=== PATIENT | female | born 1995 | race Caucasian/White ===

== ENCOUNTER 2016-08-20 12:59 | Inpatient (IN) | payer OTHER ==
[~2016-08-20] VITALS: Ht 160 cm; Wt 49.6 kg
[~2016-08-20 12:59] MED LIST: CEPH500C PO; HYDR-4003 PO; MUPI22OI2 TOP; SULF1TAB7 PO
[2016-08-20 13:02] VITALS: BP 144/84; PULSE 117; RESP 18; O2SAT 99
--- NOTE | 2016-08-20 13:18 | ED.REPORT ---
HPI-Rash / Abscess Date of Service Aug 20, 2016 ED Provider: Bernardino Mendez MD The pt is a 21 y/o female w/ a hx of cellulitis presenting to the ED due to severe swelling around the eyes. She reports being "normal" yesterday, but having a pimple above her L eyelid. She was tested negative for Lupus by a bearing grinder and reports antibiotics having decreased her physical symptoms but "still feeling something" around her eyes. The pt rates the pain as an 8/ 10. This has happened to the pt 5 times over the last year and a half, with the most recent episode being a month ago. None of the previous episodes have been this severe. Nursing Notes Stated Complaint: SWOLLEN FACE Chief Complaint: Head, Face, Neck Trauma Nursing Notes Reviewed: Yes (Transparency Software, F[employer] not reconciled) Allergies: Coded Allergies: No Known Allergies (Unverified , 04/18/15) Scheduled Citalopram (Citalopram) 10 Mg Tablet 10 MG PO DAILY General Time Seen by MD: 13:17 Chief Complaint Other (Facial swelling ) Hx Obtained From: Patient Arrived By: Walk-in Onset Occurred: Yesterday Symptom Duration: Since onset Recent Healthcare: No recent hospitalization, Recent doctor visit Similar Sx Previous: Yes Past Medical History Past Medical History h/o MSSA Cellulitis (recurrent, facial x4 over past ~12 months), 1 prior admit OSH Past Surgical History Denies Smoking History Current Every Day Smoker Social History Other Social History: Good social support Ambulatory Status Independent Review of Systems Skin: Reports Swelling (Face) Complete sys rev & neg: except as marked. Physical Exam Initial Vital Signs Vital Signs (First) Date Time Temp Pulse Resp B/P Pulse Ox O2 Delivery O2 Flow Rate FiO2 08/20/16 13:02 117 18 144/84 99 Room Air 08/20/16 13:19 36.8 Initial VS: Reviewed, Vital signs abnormal General/Constitutional: Awake, Alert Behavior: Positive: Anxious, Tearful Skin: No rash, Intact Entire upper face including both eyelids swollen and erythematous Clear drained which may be topical antibiotic on bridge of nose Cheeks are swollen No abscess appreciated for I&D Head / Eyes: Atraumatic, Normocephalic ENT: Atraumatic, Airway patent, Mucous membranes moist Respiratory / Chest: Atraumatic, Breath sounds NL, Breath sounds = bilat, No respiratory distress, No rales, No rhonchi, No wheezing Cardiovascular: Regular rhythm, Heart sounds NL, No murmurs Heart Rate / Rhythm: Positive: Tachycardia Upper Extremity / MS: Atraumatic, Full range of motion Lower Extremity / Pelvis / MS: Atraumatic, Full range of motion Neurologic: Oriented X3, Speech NL Neck: Atraumatic, Supple, Full range of motion Wrist / Hand: Atraumatic, Inspection NL, Full range of motion Interpretation & Diagnostics Lab Results Interpretation Result Diagram: 08/20/16 1330 08/20/16 1330 Test 08/20/16 13:30 08/20/16 13:52 White Blood Count 8.1th/mm3 (3.8-10.1) Red Blood Count 4.85mil/mm3 (3.90-5.20) Hemoglobin 14.6g/dL (12.0-15.6) Hematocrit 44.6% (35.0-46.0) Mean Corpuscular Volume 92.0fL (81-100) Mean Corpuscular Hemoglobin 30.1pg (27.0-35.0) Mean Corpuscular Hemoglobin Concent 32.7% (32.0-37.0) Red Cell Distribution Width 13.2% (12.3-15.4) Platelet Count 275bil/L (150-400) Neutrophils (%) (Auto) 63.1% (40-74) Lymphocytes (%) (Auto) 21.1% (14-46) Monocytes (%) (Auto) 11.4% (4-12) Eosinophils (%) (Auto) 3.8% (0-5) Basophils (%) (Auto) 0.5% (0-3) Sodium Level 138mEq/L (134-144) Potassium Level 4.0mEq/L (3.5-5.2) Chloride Level 98mEq/L (97-108) Carbon Dioxide Level 23mmol/L (18-29) Blood Urea Nitrogen 14mg/dL (6-20) Creatinine 0.71mg/dL (0.57-1.00) Estimat Glomerular Filtration Rate 146mL/min (>59) Glucose Level 80mg/dL (60-99) Calcium Level 9.6mg/dL (8.5-10.1) Total Bilirubin 0.9mg/dL (0.0-1.2) Aspartate Amino Transf (AST/SGOT) 29U/L (0-50) Alanine Aminotransferase (ALT/SGPT) 20U/L (0-32) Alkaline Phosphatase 81U/L (25-150) Total Protein 7.4g/dL (6.4-8.4) Albumin 4.5g/dL (3.4-5.0) Procalcitonin 0.02ng/mL (0.00-0.08) Lactic Acid Level 0.9mmol/L (0.4-2.0) Lab Results Interpretation: CBC normal CMP normal Lactic acid normal CT Head Interpretation Face CT IMPRESSION: 1. Marked right facial soft tissue swelling without underlying abscess amenable to drainage. These findings are most consistent with cellulitis. Dictated by: Lottie Gao M.D. on 08/20/2016 at 15:19 Study: Head CT w contrast (IV) Interpretation / Wet Read by: Interpret - Radiologist Re-Eval/Medical Decision Med Decision/Clinical Course This is a 21-year-old female presents with swelling pain and redness of the face. Patient reports that over the past year she has multiple episodes of cellulitis, and alleges that they have all been negative for MRSA, and but that she has been told it is a "staph infection-presumably an MSSA and is responded to antibiotic. She reports is rather sudden onset, and today's episode is the worst. She felt okay this morning, but developed redness swelling and pain down her eyelids are close to swollen shut, no foreign face are swollen and erythematous. She reports moderate pain, significant anxiety, some weeping clear drainage, and she applies topical silver sulfadiazine. She reports due to the recurrence she seen several providers up in [place], she has seen a bearing grinder and reports a biopsy was done that was negative for lupus. On exam, the patient has marked swelling of the forehead, both eyelids in the periorbital regions to the point that her eyes are almost closed. She denies any ocular complaints. The swelling is very pronounced. There is erythema and warmth. There is some clear drainage along the nose which was sampled and a culture sent. I do not appreciate clinical evidence of a alex full local abscess. The patient reports she did a "ingrown hair" on the right thigh recently, but this is not currently infected and is a healing well with no signs of infection or MRSA. Patient's in tears, the swelling is quite impressive. She has no evidence of airway compromise is on the periorbital regions of the left greater than the right side involvement. An IV is placed, labs and culture were drawn. The patient's been started on vancomycin after discussion with Obi Tovar from infectious disease, immediately given an empiric dose of steroids given the severity of the swelling. A CT of the face with IV contrast is being obtained to evaluate for underlying abscess not clinically apparent. Given the severity of swelling involving the face admission is indicated Source of Hx: Old records Differential Diagnosis: Positive: Cellulitis, Negative: Hand, foot, mouth disease, Henoch-Schonlein purpura, Herpes zoster/ simplex, Kawasaki's disease, Enrique mt spotted fever, Scabies, Scarlet fever, Shingles, herpes zoster Counseled Regarding: Diagnosis, Lab results, Need for admission Discharge & Departure Impression: Primary Impression: Cellulitis Site of cellulitis: face Qualified Code: L03.211 - Cellulitis of face Disposition: ADMITTED TO HOSPITAL Discharge Condition All VS Reviewed: Yes Condition: Stable Referrals: Reginaldo Ni MD (PCP) Golden Reynoso MD (Family) Charlette Attestation Portions of this note were transcribed by Bi Alvarado. I, Dr. Mendez personally performed the history, physical exam and medical decision-making; I reviewed and confirmed the accuracy of the information in the transcribed note. Signed by : Charlette Ac, 08/20/16 and 1340. copies to: Golden Reynoso MD; Reginaldo Ni MD, Matthew F MD Aug 20, 2016 13:18 Bi Alvarado Aug 20, 2016 13:44 JARRELL REYES Aug 20, 2016 16:31
[2016-08-20] MEDS ORDERED: Ondansetron 2 mg/mL 2 mL Inj IVPUSH ONE (13:35)
[2016-08-20] MEDS ORDERED: Dexamethasone Inj 10 MG in 0.9% Sodium Chloride-Pha MIX 50 ML IV ONE (13:40)
[2016-08-20] MEDS ORDERED: Vancomycin Dose per Pharmacist XX ONE (13:40)
[2016-08-20 13:43] LABS: BASOPHILS % (AUTO) 0.5 % (0-3); EOSINOPHILS % (AUTO) 3.8 % (0-5); MONOCYTES % (AUTO) 11.4 % (4-12); Mean Corpuscular Hemoglobin 30.1 pg (27.0-35.0); NEUTROPHILS % (AUTO) 63.1 % (40-74); Platelet Count 275 bil/L (150-400)
[2016-08-20] MEDS ORDERED: Vancomycin Inj 1,000 MG in IV Premix 1 EACH IV ONE (13:50)
[2016-08-20] MEDS: HYDROmorphone 0.5 mg/0.5 mL iSecure Syringe IVPUSH PRN ×2 (13:54→15:36)
[2016-08-20] MEDS ORDERED: CITA10TA9 PO (14:08)
--- NOTE | 2016-08-20 15:29 | DRSVH ---
PROCEDURE: CT FACE WITH CONTRAST ([id number]) INDICATIONS: severe facial cellulits r/o abscess TECHNIQUE: After the administration of intravenous contrast, 3.0 mm axial sections acquired from the mid-neck to the frontal sinuses, with coronal reformatting. For radiation dose reduction, the following was use d: automated exposure control. COMPARISON: None. FINDINGS: Image quality: Excellent. Soft tissues: There is marked swelling overlying the right preorbital, zygomatic and maxillary soft t issues. There is no discrete fluid collection to suggest abscess. No other suspicious soft tissue les ions. There are multiple subcentimeter shotty lymph nodes. Vascular: Visualized vascular structures appear patent throughout. Bony vascular foramina and canal s appear normal. Bones: Facial bones appear intact, without fractures, erosions, or destruction. Visualized portions of the skull base and auditory canals also appear normal. Sinuses: Paranasal sinuses are aerated without fluid levels, mucosal thickening, or mucoceles. Mast oid air cells are aerated. IMPRESSION: 1. Marked right facial soft tissue swelling without underlying abscess amenable to drainage. These fi ndings are most consistent with cellulitis. Dictated by: Lottie Gao M.D. on 08/20/2016 at 15:19 Approved by: Lottie Gao M.D. on 08/20/2016 at 15:27
[2016-08-20 15:48] VITALS: BP 118/80; PULSE 83; RESP 16; O2SAT 96
[2016-08-20] MEDS ORDERED: Alum-Mag Hydrox-Simeth 30 mL Suspension PO PRN ×2 (16:35→17:25)
[2016-08-20] MEDS ORDERED: Ondansetron 2 mg/mL 2 mL Inj IVPUSH PRN ×2 (16:35→17:25)
[2016-08-20 16:50] VITALS: BP 121/78; PULSE 78; RESP 16; O2SAT 99
--- NOTE | 2016-08-20 17:07 | NUR ---
Admission Patient admitted from the ED at 1636. Admit questions and med list accomplished by admit nurse. Patient states a pressure pain in the face of 8/10. MD notified and will order pain meds. Also gave ice packs to help relieve pain. vitals - t-36.7, bp-121/78, p-78, rr-16, o2-99 on RA. Oriented patient to the room, placed bed in lowest position and call light within reach.
[2016-08-20] MEDS ORDERED: Polyethylene Glycol (PEG) 17 Gm Powder PO PRN (17:25)
[2016-08-20] MEDS: Dexamethasone 4 mg/mL Inj IVPUSH SCH (17:38)
--- NOTE | 2016-08-20 17:45 | PCM.HPMED ---
Subjective Date of Service Aug 20, 2016 Primary Provider: Admitting Physician: Eric Peace MD Primary Care Physician: Cristian Attending Physician: Eric Peace MD Admit Status: From the Emergency Department, Admit to [place] Team Chief Complaint: Left Eye Swelling History of Present Illness: 21 yo F with h/o anxiety/depression, recurrent facial cellulitis of left eye presenting for severe swelling of left eye and overlying rash. Started yesterday. She says that she woke up this AM and here eye was swollen almost closed. She has had issues like this in the past and has been seen by [facility]. She has been tested for Lupus and that test was negative. Has responsed to antibiotics in the past. Pt denies fever,chills. Was painful but that has improved with the pain meds. Does not some clear discharge when wiping her eye but no purulent discharge. She says she has been tested for MRSA in the past and that has been negative. Has had 5 episodes over last year but this is most severe. Denies any sick contacts. No bug bites. No outdoor activity. No new products applied to face. Review of Systems: 12 point ROS negative except that in HPI Allergies Coded Allergies: No Known Allergies (Unverified , 04/18/15) Home Medications Citalopram (Citalopram) 10 Mg Tablet 10 MG PO DAILY PMH Depression Anxiety Recurrent episodes of Facial Cellulitis- MSSA, Surgical History No surgeries. Family History non-contrib Social History Hx Alcohol Use: No Hx Substance Use: No Hx Tobacco Use: Yes Smoking Status: Current Every Day Smoker Living Arrangement: with Family Exam Vital Signs Vital Sign - Last Date Time Temp Pulse Resp B/P Pulse Ox O2 Delivery O2 Flow Rate FiO2 08/20/16 16:50 36.7 78 16 121/78 99 Room Air Exam Gen- AOX3, Anxious HEENT- NC/AT PERRLA Left Eye- +area medial to Eye- +erythema, non-purulent. 4inche x 1 inch. Chest- CTAB CVS- S1,S2 RRR, No M/R/G Abd- soft, +BS, NT/ND. No HSM. Ext- No Edema, +PP Lab and Diagnostics Labs CBC CMP l Result Diagram: 08/20/16 1330 08/20/16 1330 Microbiology Laboratory Tests Test 08/20/16 13:30 08/20/16 13:52 White Blood Count 8.1th/mm3 (3.8-10.1) Red Blood Count 4.85mil/mm3 (3.90-5.20) Hemoglobin 14.6g/dL (12.0-15.6) Hematocrit 44.6% (35.0-46.0) Mean Corpuscular Volume 92.0fL (81-100) Mean Corpuscular Hemoglobin 30.1pg (27.0-35.0) Mean Corpuscular Hemoglobin Concent 32.7% (32.0-37.0) Red Cell Distribution Width 13.2% (12.3-15.4) Platelet Count 275bil/L (150-400) Neutrophils (%) (Auto) 63.1% (40-74) Lymphocytes (%) (Auto) 21.1% (14-46) Monocytes (%) (Auto) 11.4% (4-12) Eosinophils (%) (Auto) 3.8% (0-5) Basophils (%) (Auto) 0.5% (0-3) Sodium Level 138mEq/L (134-144) Potassium Level 4.0mEq/L (3.5-5.2) Chloride Level 98mEq/L (97-108) Carbon Dioxide Level 23mmol/L (18-29) Blood Urea Nitrogen 14mg/dL (6-20) Creatinine 0.71mg/dL (0.57-1.00) Estimat Glomerular Filtration Rate 146mL/min (>59) Glucose Level 80mg/dL (60-99) Calcium Level 9.6mg/dL (8.5-10.1) Total Bilirubin 0.9mg/dL (0.0-1.2) Aspartate Amino Transf (AST/SGOT) 29U/L (0-50) Alanine Aminotransferase (ALT/SGPT) 20U/L (0-32) Alkaline Phosphatase 81U/L (25-150) Total Protein 7.4g/dL (6.4-8.4) Albumin 4.5g/dL (3.4-5.0) Procalcitonin 0.02ng/mL (0.00-0.08) Lactic Acid Level 0.9mmol/L (0.4-2.0) Microbiology 08/20/16 Blood Culture, Received Pending 08/20/16 Gram Stain - Final, Resulted 08/20/16 Culture & Sensitivity, Resulted Pending X-Rays, CTs and MRIs PROCEDURE: CT FACE WITH CONTRAST ([id number]) INDICATIONS: severe facial cellulits r/o abscess TECHNIQUE: After the administration of intravenous contrast, 3.0 mm axial sections acquired from the mid-neck to the frontal sinuses, with coronal reformatting. For radiation dose reduction, the following was used: automated exposure control. COMPARISON: None. FINDINGS: Image quality: Excellent. Soft tissues: There is marked swelling overlying the right preorbital, zygomatic and maxillary soft tissues. There is no discrete fluid collection to suggest abscess. No other suspicious soft tissue lesions. There are multiple subcentimeter shotty lymph nodes. Vascular: Visualized vascular structures appear patent throughout. Bony vascular foramina and canals appear normal. Bones: Facial bones appear intact, without fractures, erosions, or destruction. Visualized portions of the skull base and auditory canals also appear normal. Sinuses: Paranasal sinuses are aerated without fluid levels, mucosal thickening , or mucoceles. Mastoid air cells are aerated. IMPRESSION: 1. Marked right facial soft tissue swelling without underlying abscess amenable to drainage. These findings are most consistent with cellulitis. Dictated by: Lottie Gao M.D. on 08/20/2016 at 15:19 Approved by: Lottie Gao M.D. on 08/20/2016 at 15:27 Assessment & Plan 21 yo F with h/o anxiety/depression, recurrent facial cellulitis of left eye presenting for severe swelling of left eye and erythema likely 2/2 to cellulitis. #Facial Cellulitis- w/ severe Orbital Swelling- previous episodes of MSSA, some clear drainage appears non-purulent. -Pt has been started on Vancomycin and Decadron for swelling given location. -F/u Blood Cultures. CT Face- c/w cellulitis w/ no abscess. -ID Consulted. #Depression- continue home med. #Tobacco Use- Nicotine patches. #Pain- Morphine 1mg IV q3h prn. FEN- Diet- regular GI ppx- none required. VTE Prophylaxis- Ambulatory, SCD. Code- Full Pain Evaluation: Adequate Pain Control GI Prophylaxis: Not indicated VTE Prophylaxis: SCDs VTE Mechanical Devices: Intermittant Pneumatic CD Resuscitation Status: CPR: Attempt Resuscitation Time spent 60 minutes Exam Vital Signs Vital Sign - Last Date Time Temp Pulse Resp B/P Pulse Ox O2 Delivery O2 Flow Rate FiO2 08/20/16 16:50 36.7 78 16 121/78 99 Room Air General: Alert, Oriented X3 Head: Normal Eyes: Other (L) Lab and Diagnostics Result Diagram: 08/20/16 1330 08/20/16 1330 Eric Peace MD Aug 20, 2016 17:32 Pain Evaluation: Adequate Pain Control GI Prophylaxis: Not indicated VTE Prophylaxis: SCDs VTE Mechanical Devices: Intermittant Pneumatic CD Resuscitation Status: CPR: Attempt Resuscitation Time spent 60 minutes Exam Vital Signs Vital Sign - Last Date Time Temp Pulse Resp B/P Pulse Ox O2 Delivery O2 Flow Rate FiO2 08/20/16 16:50 36.7 78 16 121/78 99 Room Air General: Alert, Oriented X3 Head: Normal Eyes: Other (L) Lab and Diagnostics Result Diagram: 08/20/16132908/20/161329 Eric Peace MD Aug 20, 2016 17:32
--- NOTE | 2016-08-20 20:45 | CONS ---
[address] [address] CONSULTATION REPORT PATIENT: MARIE WALTON : 1995 MR#: [id number] ADMIT: 08/20/2016 JOB ID: [id number] DATE OF SERVICE: 08/20/2016 INFECTIOUS DISEASE CONSULTATION: I thank Dr. Bernardino Mendez from the emergency department for this timely consult. REASON FOR CONSULT: Recurrent mid facial cellulitis in a young woman. HISTORY OF THE PRESENT ILLNESS: The patient is a 21-year-old woman who has no significant known medical problems. She states that over the past year and a half or so she has had at least four very severe episodes of mid facial cellulitis. These typically begin along the left side, the left medial end of her eyebrow, where she will develop a small erythematous lesion which rapidly evolves into a tender weeping erythematous mass which extends basically from the middle of the forehead, down along the bridge of the nose, and sometimes involves the periorbital area. She states that she has been evaluated at [facility] in [place], as well as a private practice in [place], and an outpatient dermatology practice, and at all these location she was told this represented some form of Staph infection, though what form was not completely clear. She states she has been evaluated for lupus and has received very long courses of antibiotics only to have this very disfiguring type of cellulitis recur. She states she has no other known medical problems, though she is a cigarette smoker and does have some history of anxiety, but otherwise is pretty healthy and employed at two different jobs at this point. These recurrent episodes, including the one that began yesterday which is now in the left middle portion of her upper face, are not accompanied by demonstrable fevers, chills, or sweats, though she sometimes feels quite warm. They are, not surprisingly, associated with headache and sometimes with some swelling of one eye. There is no association with sore throat or significant pulmonary or GI symptoms. PAST MEDICAL HISTORY: Anxiety. No other problems aside from apparent recurrent soft-tissue infections involving only the face. 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 She does smoke cigarettes; a pack takes her few days to smoke. She drinks wine socially. FAMILY HISTORY: Negative for tuberculosis in first- and second-degree relatives, but also negative for connective tissue diseases. REVIEW OF SYSTEMS: Was done. Aside from the headache, which is occurring now due to the facial lesion, and some diminution of vision on the left because of swelling around the orbit, the patient has very few symptoms. She has pain along the erythematous area in the middle of the face, but otherwise no oral lesions, no trouble swallowing. No sore throat, stiff neck, cough, shortness of breath, chest pain, nausea, vomiting, diarrhea, or dysuria. She has noticed a little pain and swelling which seems to have occurred spontaneously around her left ankle over just the last day or two. She has also developed a scab over her right knee and does not remember any recent trauma. The remainder of the review of systems is negative. PHYSICAL EXAMINATION: Reveals a young woman in no acute distress. Her temperature is 36.7, pulse 78, respiratory rate 16, blood pressure 121/78. She is saturating 99% on room air. She is upset and in some distress secondary to the cellulitis. This is an area approximately 5 x 2 cm wide which starts in the left mid portion of the forehead, extends down to involve the medial portion of the eyebrow on the left, and down into the medial aspect of the orbit. This areas is slightly tender to the touch and is inflamed, with rather rigid borders. I attempted to express some purulent material from this, as she said that was relatively easy to do, but I was not able to produce any fluid from the area where she stated there is usually during drainage, right around the end of the eyebrow on the left. The remainder of the face is free of any cellulitis or abnormality. The patient's extraocular movements are intact, though it is difficult to see her left eye very clearly because of the swelling around the orbit. The nose appears quite normal. The oral cavity without thrush, hairy leukoplakia, or pharyngitis. The neck is supple, without adenopathy. The lungs are clear. Cardiac tones regular rate and rhythm, without murmur. Abdomen without hepatosplenomegaly. There is no suprapubic fullness. No obvious cervical or inguinal adenopathy. Extremities are unremarkable, though when the patient's left ankle is palpated there is significant pain, especially along the medial aspect, but I do not see any inflammation, nor is there any significant effusion, cellulitis, or swelling. The right lower extremity is completely normal, except for a shallow healing scab just proximal to the right knee. It does not appear in any way infected. There is no evidence for synovitis, except that slightly tender left ankle, which is not swollen or tender. No other joints are involved. Neurologically, the patient is intact. Her mental status is normal. She appears anxious. LABORATORIES: Include white count 8100, with totally normal diff. Creatinine 0.71. Lactic acid 0.9. LFTs normal. Procalcitonin 0.02. A Gram stain done by the ED doctor from some draining material he was able to express from the face has no polys and no organisms. Blood cultures x2 were done. IMAGING: A CT scan of the face was done which shows right facial soft tissue swelling without underlying abscess, consistent with cellulitis. Interestingly most of the abnormal exam is on the opposite side. IMPRESSION: This is a patient on whom we have essentially no records who presents with one in a series of ongoing episodes of recurrent facial inflammation and presumably staphylococcal infection. She has been told by other providers that staph has been cultured but we have really no records to prove that in our system. The patient has really nothing in the way of unusual exposures or travel and there is nothing to suggest ongoing immunosuppression. Why this particular area of the body would be so impacted by recurrent MSSA infections is unclear at this point, as I see no evidence for ongoing systemic disease or immunosuppression. RECOMMENDATIONS: 1. Will start treatment with vancomycin as I discussed with Dr. Mendez in the ED. 2. Nasal MRSA swab will be ordered. 3. Will add OLEG, quantitative immunoglobulins, and HIV to the morning labs. 4. We await the culture results from the ED. 5. I have asked the speaking unit assembler to obtain the records from [facility], as well as [facility], in hopes of seeing what cultures and other studies they did. 6. Will continue to watch this patient very closely. 7. It may be that an attempt at Staph aureus eradication with nasal Bactroban, Hibiclens washes, and a prolonged course of dual antibiotic therapy may be indicated as we get more data about this patient. Thank you very much.
[2016-08-20 21:04] VITALS: BP 142/93; PULSE 89; RESP 16; O2SAT 99
--- NOTE | 2016-08-20 21:19 | PCM.CONPHA ---
Assessment/Plan Assessment/Plan Pharmacy Kinetic Dosing Vancomycin Indication: FACIAL CELLULITIS Vanc goal trough: 10-15 mcg/mL Pt wt: 49.6 kg Other ABX: NONE Cultures: Blood/MRSA PENDING SCr: 0.71 mg/dL Assessment/Plan: - Loading dose of Vancomycin 1000 mg given in ED for (20mg/kg dosing) -Subsequent doses of 750 mg Q12H will be given with a trough scheduled on @0200 Pharmacy appreciates consult and will continue to monitor. Donya Cabezas PharmD Aug 20, 2016 21:19
[2016-08-20] MEDS ORDERED: ALPRAZolam 0.25 mg Tablet PO ONE (22:00)
[2016-08-21] MEDS: Heparin 5,000 Unit/mL Inj SUBQ SCH ×3 (00:28→17:13)
--- NOTE | 2016-08-21 00:38 | NUR ---
Mentation Pt in room crying, complained of pain "7" out of 10. Pt reports "nothing is helping my pain and I haven't slept for 2 days." Mom at bedside also reports pt "has not slept in 2 days, Melatonin won't work. I want the doctor to order something to knock her out." Pt reports feeling anxiety. Nicoderm patch came off in [facility], requested a new patch. notified. New order: One time dose Xanax PO and Morphine IV push. A new Yuriy patch ordered. Pt and mom shared concerns about pt being discharged before they "get some answers." Pt also requesting a prescription for her home antidepressant when she discharged. Will be passed on the day shift RN. Call light within reach, using appropriately. Frequent rounding in place. Pleasant and cooperative with care. Will continue to monitor care.
[2016-08-21] MEDS: Dexamethasone 4 mg/mL Inj IVPUSH SCH ×3 (02:00→17:13)
[2016-08-21] MEDS: Vancomycin Inj 750 MG in 0.9% Sodium Chloride 250 ML IV SCH ×2 (02:00→15:07)
[2016-08-21 06:26] LABS: BASOPHILS % (AUTO) 0.2 % (0-3); EOSINOPHILS % (AUTO) 0 % (0-5); MONOCYTES % (AUTO) 5.8 % (4-12); Mean Corpuscular Hemoglobin 30.6 pg (27.0-35.0); Mean Corpuscular Volume 91.8 fL (81-100); NEUTROPHILS % (AUTO) 85.8 % (40-74); Platelet Count 257 bil/L (150-400)
[2016-08-21 06:49] VITALS: BP 110/68; PULSE 55; RESP 16; O2SAT 99
[2016-08-21] MEDS: Vancomycin Dose per Pharmacist XX SCH ×2 (07:42→09:06)
--- NOTE | 2016-08-21 10:21 | PROG NOTE ---
[address] [address] PROGRESS NOTE PATIENT: MARIE WALTON : 1995 MR#: [id number] ADMIT: 08/20/2016 JOB ID: [id number] DATE: 08/21/2016 INFECTIOUS DISEASE FOLLOW UP NOTE: REASON FOR FOLLOWUP: Severe left upper facial cellulitis with left periorbital cellulitis. INTERVAL HISTORY: Overnight, the patient reports, if anything, her facial cellulitis has worsened. Recall that she came in with a rapidly progressive left central facial cellulitis which involved the left orbit as well. This is one in a series of numerous recurrences over the last 18 months for this young woman. She reports that some of these have been due to Staph and I asked for records to be faxed from the [facility] where supposedly the positive cultures have been done. Unfortunately what was faxed appears to been records on another patient so it was not helpful so far and we have no confirmation that the prior episodes were Staph other than the patient and her mother recalling this. The patient has not had fevers or chills overnight. She continues to have a headache and especially pain around the left eye, of course, from this process. No sore throat or cough. PHYSICAL EXAMINATION: Reveals a very uncomfortable, tearful young woman. Temperature 36.7, pulse 55, respiratory rate 16, blood pressure 110/68. She is saturating well on room air. The 5 x 2 basically rectangular stripe of cellulitis which extends from the middle forehead down through the left medial eyebrow through the left medial canthus and down to about the mid portion of the nose continues with little change. I see no pustules or vesicles that would definitively indicate pyogenic or viral etiology. The area is very tender, slightly warm and I cannot produce any exudate to culture though the patient tells me there has been some yellowish exudate. She does have extraocular movements but she has a great deal of difficulty even opening the left eye today. Oral cavity without thrush or pharyngitis. There is no herpetic lesions on the lips. The neck is supple. The lungs are clear. Cardiac tones without murmur. Abdomen negative. LABORATORIES: Include a white count which has actually gone up overnight. It is now 11,500 with 86% segs. Creatinine 0.48. CRP is 0.3. Procalcitonin basically 0. Quantitative immunoglobulins and HIV that I had ordered are all pending but not yet done. Blood cultures are negative. The Gram stain and culture of this material is negative. The PCR for MRSA from the nares is pending. Should be done within an hour. The CT scan of the face did not show anything of great interest and that was discussed yesterday. IMPRESSION: This is a strange case of a young, apparently totally healthy woman with several episodes of worsening and severe left upper facial cellulitis. These attacks tend to be mimetic and are becoming increasingly severe. It has been reported that Staph has been culture but I am not sure if this is Staph epi, Staph aureus or MRSA and we await additional data. There is still no great material for us to culture unfortunately making diagnostics even more difficult. RECOMMENDATIONS: The patient is now receiving vanco and I am a little concerned that we do not have any microbiologic definition here. Most likely, this represents Staph but this is by no means certain as we do not have any cultures so I think it is reasonable at least in the near term as she is getting worse to broaden out a bit. RECOMMENDATIONS: 1. Will continue with vancomycin with close monitoring of levels. If we cannot get good serum levels easily, will switch to dapto. 2. Will add ertapenem in a dose of 1 g once a day to start immediately. 3. We await the pending culture studies and labs from [place]. 4. I have discussed the necessity of getting the lab work as soon as possible with the community engagement representative.
--- NOTE | 2016-08-21 10:40 | PCM.PNMED ---
Subjective Date of Service Aug 21, 2016 Subjective 21 yo F with h/o anxiety/depression, recurrent facial cellulitis of left eye presenting for severe swelling of left eye and overlying rash. Started yesterday. She says that she woke up this AM and here eye was swollen almost closed. She has had issues like this in the past and has been seen by Water Hydrant Installer. She has been tested for Lupus and that test was negative. Has responsed to antibiotics in the past. Pt denies fever,chills. Swelling on right side improved today. [place] has felt anxious. No other vison disturbances. ON broad spectrum coverage. ID on board. No diarrhea Exam Vital Signs Vital Sign - Last Date Time Temp Pulse Resp B/P Pulse Ox O2 Delivery O2 Flow Rate FiO2 08/21/16 06:49 36.7 55 16 110/68 99 Room Air Exam Gen- AOX3, Anxious HEENT- NC/AT PERRLA Left Eye- +area medial to Eye- +erythema, non-purulent. Chest- CTAB, no wheeze or crackles CVS- S1,S2 RRR, No M/R/G Abd- NT/ND Ext- No Edema, +PP Muscoloskeletal - mild left ankle edema, no tenderness, difficulty with flexion and extension IVs and Medications Medications Reviewed: Medications were reviewed in detail Lab and Diagnostics Result Diagram: 08/21/16 0555 08/21/16 0555 Microbiology Laboratory Tests Test 08/20/16 13:30 08/20/16 13:52 White Blood Count 8.1th/mm3 (3.8-10.1) Red Blood Count 4.85mil/mm3 (3.90-5.20) Hemoglobin 14.6g/dL (12.0-15.6) Hematocrit 44.6% (35.0-46.0) Mean Corpuscular Volume 92.0fL (81-100) Mean Corpuscular Hemoglobin 30.1pg (27.0-35.0) Mean Corpuscular Hemoglobin Concent 32.7% (32.0-37.0) Red Cell Distribution Width 13.2% (12.3-15.4) Platelet Count 275bil/L (150-400) Neutrophils (%) (Auto) 63.1% (40-74) Lymphocytes (%) (Auto) 21.1% (14-46) Monocytes (%) (Auto) 11.4% (4-12) Eosinophils (%) (Auto) 3.8% (0-5) Basophils (%) (Auto) 0.5% (0-3) Sodium Level 138mEq/L (134-144) Potassium Level 4.0mEq/L (3.5-5.2) Chloride Level 98mEq/L (97-108) Carbon Dioxide Level 23mmol/L (18-29) Blood Urea Nitrogen 14mg/dL (6-20) Creatinine 0.71mg/dL (0.57-1.00) Estimat Glomerular Filtration Rate 146mL/min (>59) Glucose Level 80mg/dL (60-99) Calcium Level 9.6mg/dL (8.5-10.1) Total Bilirubin 0.9mg/dL (0.0-1.2) Aspartate Amino Transf (AST/SGOT) 29U/L (0-50) Alanine Aminotransferase (ALT/SGPT) 20U/L (0-32) Alkaline Phosphatase 81U/L (25-150) Total Protein 7.4g/dL (6.4-8.4) Albumin 4.5g/dL (3.4-5.0) Procalcitonin 0.02ng/mL (0.00-0.08) Lactic Acid Level 0.9mmol/L (0.4-2.0) Microbiology 08/20/16 Blood Culture, Received Pending 08/20/16 Gram Stain - Final, Resulted 08/20/16 Culture & Sensitivity, Resulted Pending X-Rays, CTs and MRIs PROCEDURE: CT FACE WITH CONTRAST ([id number]) INDICATIONS: severe facial cellulits r/o abscess TECHNIQUE: After the administration of intravenous contrast, 3.0 mm axial sections acquired from the mid-neck to the frontal sinuses, with coronal reformatting. For radiation dose reduction, the following was used: automated exposure control. COMPARISON: None. FINDINGS: Image quality: Excellent. Soft tissues: There is marked swelling overlying the right preorbital, zygomatic and maxillary soft tissues. There is no discrete fluid collection to suggest abscess. No other suspicious soft tissue lesions. There are multiple subcentimeter shotty lymph nodes. Vascular: Visualized vascular structures appear patent throughout. Bony vascular foramina and canals appear normal. Bones: Facial bones appear intact, without fractures, erosions, or destruction. Visualized portions of the skull base and auditory canals also appear normal. Sinuses: Paranasal sinuses are aerated without fluid levels, mucosal thickening , or mucoceles. Mastoid air cells are aerated. IMPRESSION: 1. Marked right facial soft tissue swelling without underlying abscess amenable to drainage. These findings are most consistent with cellulitis. Dictated by: Lottie Gao M.D. on 08/20/2016 at 15:19 Approved by: Lottie Gao M.D. on 08/20/2016 at 15:27 Assessment & Plan 21 yo F with h/o anxiety/depression, recurrent facial cellulitis of left eye presenting for severe swelling of left eye and erythema likely 2/2 to cellulitis. #Facial Cellulitis- w/ severe Orbital Swelling- previous episodes of MSSA, some clear drainage appears non-purulent. -Pt has been started on Vancomycin and Decadron for swelling given location. Will taper down decadron. Id has started patient on ertapenam -F/u Blood Cultures. CT Face- c/w cellulitis w/ no abscess. -ID Consulted. #Depression and Anxiety- will restart SSRI and PRN ativan #Tobacco Use- Nicotine patches. #Pain- Morphine 1mg IV q3h prn. #Left ankle swelling - has improved will get xray FEN- Diet- regular GI ppx- none required. VTE Prophylaxis- Ambulatory, SCD. Code- Full Pain Evaluation: Adequate Pain Control GI Prophylaxis: Not indicated VTE Prophylaxis: SCDs VTE Mechanical Devices: Intermittant Pneumatic CD Resuscitation Status: CPR: Attempt Resuscitation Adam Fuentes MD Aug 21, 2016 10:40
[2016-08-21] MEDS: LORazepam 0.5 mg Tablet PO PRN ×2 (10:42→20:51)
[2016-08-21] MEDS: Ertapenem Inj 1,000 MG in 0.9% Sodium Chloride 50 ML IV SCH (12:20)
[2016-08-21 13:05] VITALS: BP 102/61; PULSE 60; RESP 16; O2SAT 99
--- NOTE | 2016-08-21 16:00 | NUR ---
Meds Pts anxiety meds restarted and PRN ativan available as well. Pt states to have had Citalopram last on 08/16, ran out of Rx at home. Pt tolerated IV abx (Ertapenem and Vanco) well. Slept most of the shift.
--- NOTE | 2016-08-21 16:37 | NUR ---
Social Work: Screening/AM Multi-Disciplinary Rounds D: EMR reviewed. Pt is a 21 y/o female admitted for facial cellulitis per H&P. Pt's insurance is [employer]. Pt does not have a PCP listed. SW to follow-up with pt regarding PCP and with MD order, schedule PCP appointment if pt agreeable. Pt lives at home with family in [place]. Per EMR, pt provided DPOA/advanced directive ppw. Per MD in AM rounds, pt does not have any SW discharge needs at this time. Pt likely to discharge home via POV when medically stable. SW will continue to follow EMR, MD, and AM rounds to determine changes in discharge needs. SW to R/O potential IVABX at discharge A: Pt who is independent at baseline. P: Pt likely to discharge home via POV when medically stable. SW will continue to follow EMR, MD, and AM rounds to determine changes in discharge needs. SW to R/O potential IVABX at discharge. DIEGO Dee
[2016-08-21 20:44] VITALS: BP 105/59; PULSE 54; RESP 16; O2SAT 99
[2016-08-22] MEDS: Heparin 5,000 Unit/mL Inj SUBQ SCH ×3 (00:30→17:00)
[2016-08-22] MEDS: Dexamethasone 4 mg/mL Inj IVPUSH SCH (01:25)
[2016-08-22] MEDS ORDERED: Vancomycin Serum Trough XX ONE (02:00)
[2016-08-22] MEDS ORDERED: Vancomycin Inj 1,000 MG in IV Premix 1 EACH IV ONE (03:43)
--- NOTE | 2016-08-22 05:00 | NUR ---
Uneventful Night: Pt rested through the night. Denies cardiac distress, SOB or n/v. Complained of facial pain 08/25. Administered Morphine IV push, effective. Pt reports "feeling better." Call light within reach, using appropriately. Independent in room. Bed locked, low position. Nonslip socks for safety. Frequent rounding. Pleasant and cooperative with care.
--- NOTE | 2016-08-22 05:31 | PCM.PHAPRO ---
Progress Date of Service: Aug 22, 2016 Requesting Provider: Eric Peace MD Left Eye Swelling Facial cellulitis??? A/ - 21 y/o female patient receiving Vancomycin (1G loading dose, 750mg iv q12h ) for facial infection - WBC jumped 11.5 from 8.1 at admission. Cultures showed no growth >24hrs, negative MRSA screen - Ertapenem added on 08/21 - Vancomycin trough level came in low @4.3 P/ - Re-load Vancomycin 1G, then re-evaluate in am during round, likely to be replaced with Daptomycin as Dr. Tovar's recommendation (see his note) Pharmacy will continue to follow Thank you Keri Jackson Aug 22, 2016 05:31
[2016-08-22 06:04] VITALS: BP 115/75; PULSE 53; RESP 16; O2SAT 99
[2016-08-22 06:59] LABS: BASOPHILS % (AUTO) 0.1 % (0-3); EOSINOPHILS % (AUTO) 0.1 % (0-5); MONOCYTES % (AUTO) 4.5 % (4-12); Mean Corpuscular Hemoglobin 30.3 pg (27.0-35.0); Mean Corpuscular Volume 93.8 fL (81-100); Platelet Count 238 bil/L (150-400)
[2016-08-22] MEDS: LORazepam 0.5 mg Tablet PO PRN ×2 (07:43→14:45)
[2016-08-22] MEDS: Ertapenem Inj 1,000 MG in 0.9% Sodium Chloride 50 ML IV SCH (07:43)
[2016-08-22] MEDS: Vancomycin Dose per Pharmacist XX SCH (08:32)
--- NOTE | 2016-08-22 10:13 | PCM.PNMED ---
Subjective Date of Service Aug 22, 2016 Subjective 21 yo F with h/o anxiety/depression, recurrent facial cellulitis of left eye presenting for severe swelling of left eye and overlying rash. She has had issues like this in the past and has been seen by Police Clerk. She has been tested for Lupus and that test was negative. Has responsed to antibiotics in the past. Pt denies fever,chills. Swelling has again improved. [place] has felt anxious. No other vision disturbances. ON broad spectrum coverage. ID on board. No diarrhea Exam Vital Signs Vital Sign - Last Date Time Temp Pulse Resp B/P Pulse Ox O2 Delivery O2 Flow Rate FiO2 08/22/16 06:04 36.4 53 16 115/75 99 Room Air Intake and Output 08/21/16 08/21/16 08/22/16 Cumulative From/Thru 15:00 23:00 07:00 08/20/16 13:02 - 08/22/16 06:53 Intake Total 300 ml 1200 ml 700 ml 2200 ml Output Total 1 ml 1 ml Balance 299 ml 1200 ml 700 ml 2199 ml Intake Oral 300 ml 1200 ml 700 ml 2200 ml Output Urine Total 1 ml 1 ml # Voids 4 3 7 Exam Gen- AOX3, Anxious HEENT- NC/AT PERRLA swelling much improved on the right side. On the left side periorbital nursing swelling again has improved there is no purulent discharge no fluctuation noted , mild tenderness to palpation Chest- CTAB, no wheeze or crackles CVS- S1,S2 RRR, No M/R/G Abd- NT/ND Ext- No Edema, +PP Muscoloskeletal - mild left ankle edema, no tenderness, difficulty with flexion and extension Lab and Diagnostics Result Diagram: 08/22/16 0538 08/22/16 0538 Microbiology Laboratory Tests Test 08/20/16 13:30 08/20/16 13:52 White Blood Count 8.1th/mm3 (3.8-10.1) Red Blood Count 4.85mil/mm3 (3.90-5.20) Hemoglobin 14.6g/dL (12.0-15.6) Hematocrit 44.6% (35.0-46.0) Mean Corpuscular Volume 92.0fL (81-100) Mean Corpuscular Hemoglobin 30.1pg (27.0-35.0) Mean Corpuscular Hemoglobin Concent 32.7% (32.0-37.0) Red Cell Distribution Width 13.2% (12.3-15.4) Platelet Count 275bil/L (150-400) Neutrophils (%) (Auto) 63.1% (40-74) Lymphocytes (%) (Auto) 21.1% (14-46) Monocytes (%) (Auto) 11.4% (4-12) Eosinophils (%) (Auto) 3.8% (0-5) Basophils (%) (Auto) 0.5% (0-3) Sodium Level 138mEq/L (134-144) Potassium Level 4.0mEq/L (3.5-5.2) Chloride Level 98mEq/L (97-108) Carbon Dioxide Level 23mmol/L (18-29) Blood Urea Nitrogen 14mg/dL (6-20) Creatinine 0.71mg/dL (0.57-1.00) Estimat Glomerular Filtration Rate 146mL/min (>59) Glucose Level 80mg/dL (60-99) Calcium Level 9.6mg/dL (8.5-10.1) Total Bilirubin 0.9mg/dL (0.0-1.2) Aspartate Amino Transf (AST/SGOT) 29U/L (0-50) Alanine Aminotransferase (ALT/SGPT) 20U/L (0-32) Alkaline Phosphatase 81U/L (25-150) Total Protein 7.4g/dL (6.4-8.4) Albumin 4.5g/dL (3.4-5.0) Procalcitonin 0.02ng/mL (0.00-0.08) Lactic Acid Level 0.9mmol/L (0.4-2.0) Microbiology 08/20/16 Blood Culture, Received Pending 08/20/16 Gram Stain - Final, Resulted 08/20/16 Culture & Sensitivity, Resulted Pending X-Rays, CTs and MRIs PROCEDURE: CT FACE WITH CONTRAST ([id number]) INDICATIONS: severe facial cellulits r/o abscess TECHNIQUE: After the administration of intravenous contrast, 3.0 mm axial sections acquired from the mid-neck to the frontal sinuses, with coronal reformatting. For radiation dose reduction, the following was used: automated exposure control. COMPARISON: None. FINDINGS: Image quality: Excellent. Soft tissues: There is marked swelling overlying the right preorbital, zygomatic and maxillary soft tissues. There is no discrete fluid collection to suggest abscess. No other suspicious soft tissue lesions. There are multiple subcentimeter shotty lymph nodes. Vascular: Visualized vascular structures appear patent throughout. Bony vascular foramina and canals appear normal. Bones: Facial bones appear intact, without fractures, erosions, or destruction. Visualized portions of the skull base and auditory canals also appear normal. Sinuses: Paranasal sinuses are aerated without fluid levels, mucosal thickening , or mucoceles. Mastoid air cells are aerated. IMPRESSION: 1. Marked right facial soft tissue swelling without underlying abscess amenable to drainage. These findings are most consistent with cellulitis. Dictated by: Lottie Gao M.D. on 08/20/2016 at 15:19 Approved by: Lottie Gao M.D. on 08/20/2016 at 15:27 Assessment & Plan 21 yo F with h/o anxiety/depression, recurrent facial cellulitis of left eye presenting for severe swelling of left eye and erythema likely secondary to cellulitis. #Facial Cellulitis- w/ severe Orbital Swelling- previous episodes of MSSA, some clear drainage appears non-purulent. -Patient is currently on vancomycin as well as meropenem as per infectious disease. Difficult time getting adequate troughs for the vancomycin may consider switch to daptomycin will leave this as per infectious disease. Anyhow her condition has significantly improved again we will continue with the IV antibiotics her cultures have also remained negative. We will go and stop the Decadron -F/u Blood Cultures. CT Face- c/w cellulitis w/ no abscess. -ID Consulted. #Depression and Anxiety- will restart SSRI and PRN ativan, anxiety is much improved today #Tobacco Use- Nicotine patches. #Pain- Morphine 1mg IV q3h prn. #Left ankle swelling - has improved, awaiting results of the x-ray Disposition: Patient's overall condition is much improved. She contnues require inpatient stay and the need for IV antibiotics. Will discuss with ID in regards to the need for ongoing IV antibiotics if that is the case may need case management involved. Her labs have been find no indication to repeat these. Patient has seen dermatology these records have been requested. FEN- Diet- regular GI ppx- none required. VTE Prophylaxis- Ambulatory, SCD. Code- Full GI Prophylaxis: Not indicated VTE Prophylaxis: SCDs VTE Mechanical Devices: Venous Foot Pump Resuscitation Status: CPR: Attempt Resuscitation Adam Fuentes MD Aug 22, 2016 10:13
--- NOTE | 2016-08-22 11:20 | DRSVH ---
PROCEDURE: X-RAY LEFT ANKLE, MINIMUM THREE VIEWS ([id number]) INDICATIONS: pain, swelling TECHNIQUE: 3 views of the ankle were acquired. COMPARISON: None. FINDINGS: Bones: No fractures or dislocations. Ankle mortise is normally aligned. No suspicious bony lesions . Soft tissues: No tibiotalar joint effusion. Achilles tendon appears normal. IMPRESSION: No definite radiographic abnormality. Dictated by: Jermaine Bruner [facility] Interpreted: Nicole Ohara MD on 08/21/2016 at 11:22 Approved by: Nicole Ohara M.D. on 08/22/2016 at 11:19
[2016-08-22 12:47] VITALS: BP 116/80; PULSE 56; RESP 18; O2SAT 100
[2016-08-22] MEDS ORDERED: DAPTOMYCIN IV SCH (13:20)
[2016-08-22] MEDS ORDERED: SODIUM CHLORIDE 0.9% IV SCH (13:20)
--- NOTE | 2016-08-22 14:57 | PROG NOTE ---
[address] [address] PROGRESS NOTE PATIENT: MARIE WALTON : 1995 MR#: [id number] ADMIT: 08/20/2016 JOB ID: [id number] DATE: 08/22/2016 REASON FOR FOLLOWUP: Left mid facial cellulitic process. INTERVAL HISTORY: The patient notes that her face is finally starting to significantly improve. There is no longer any impediment to the full opening of her left eye and so the periorbital part of this inflammatory process is much improved. The erythematous area over the middle portion of the left face is also diminished and the patient notes that the pain is gradually receding. She and her mother are extremely frustrated by this process which has now occurred several times over the last 18 months without any explanation. The patient believes firmly that this starts in and amongst the hairs that are present at the very medial end of her eyebrow. PHYSICAL EXAMINATION: Reveals an afebrile young woman, temp 36.3, pulse 56, respiratory rate 18, blood pressure 116/80, saturating 100% on room air. The rash is still about 5 x 2 cm as previously described, though it is starting to fade in intensity at this point. There are no associated vesicles and no drainage to culture or perform any molecular studies upon. The eye is now completely normal. The left eye is completely normal, and there is no more of periorbital edema. Extraocular movements are intact. Oral cavity is unremarkable and the remainder of the physical unchanged and negative. LABORATORIES: Include a white count stable at 11,300, with 83% segs. Her creatinine is 0.49. IgM is normal. IgA and IgG also normal. OLEG negative. HIV test is pending. MRSA screen of the nares negative. Blood cultures negative. A swab of the facial lesion was culture negative. IMPRESSION: I am uncertain as to the etiology of this recurrent left facial process. 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 That Staph was clindamycin susceptible. Aside from that, we have nothing to work on in terms of cultures or definitive biopsies. I wonder if this could represent a recurrent herpes simplex infection in a patient with a history of oral cold sores arising in an atypical location. It is also possible of course this is just simply recurrent Staph aureus infection, but it seems very unusual. It is possible that it is arising as a consequence of folliculitis involving that left medial eyebrow. RECOMMENDATIONS: 1. I would switch the vancomycin to daptomycin and I have done that as the vancomycin levels are too low. 2. Will continue with both daptomycin and ertapenem until discharge, which I anticipate will be today or tomorrow. 3. At discharge, I would send the patient out with clindamycin 300 mg p.o. q.i.d. for two weeks as well as rifampin 450 b.i.d. for two weeks. In addition, I would send the patient with mupirocin 2% ointment to apply to the anterior nares twice a day for two weeks as well as to apply directly to the forehead lesion twice a day and whenever this starts to recur, should it recur in the future. In addition to these measures, I instructed the patient and her mother to use Hibiclens soap in the shower for at least the same two weeks she is taking clindamycin and rifampin. 4. Our goal is to try and eradicate what may be a retained strain of Staph aureus, which is causing this recurrent facial infection. 5. Should the patient start to develop this again, I asked her to return to an urgent care or ED as soon as possible so that slides can be made for DFA for herpes simplex or perhaps fluid collected for PCR for herpes simplex, as I wonder if this could constitute a recurrent localized herpes simplex eruption.
--- NOTE | 2016-08-22 18:35 | NUR ---
Swelling/meds Pt noted to have less facial swelling today from yesterday. Was able to open L eye. states there is more itching today than yesterday. Tolerated IV abx well. Today, Dapto replaced Vanco. Pt hoping to be d/c tomorrow after IV abx infuse.
[2016-08-22 20:18] VITALS: BP 129/86; PULSE 61; RESP 16; O2SAT 100
[2016-08-23] MEDS: Heparin 5,000 Unit/mL Inj SUBQ SCH ×2 (00:30→08:00)
[2016-08-23 04:52] VITALS: BP 116/71; PULSE 54; RESP 16; O2SAT 100
[2016-08-23 05:48] LABS: BASOPHILS % (AUTO) 0.6 % (0-3); EOSINOPHILS % (AUTO) 1.6 % (0-5); MONOCYTES % (AUTO) 8.1 % (4-12); Mean Corpuscular Hemoglobin 30.3 pg (27.0-35.0); Mean Corpuscular Volume 93.3 fL (81-100); NEUTROPHILS % (AUTO) 42.8 % (40-74); Platelet Count 247 bil/L (150-400)
--- NOTE | 2016-08-23 06:06 | NUR ---
Pain Pt reporting facial pain 5/10 this shift. Medicating pt with IV morphine for pain control. Pt stating scab on face is burning and itching. Call light within reach, frequent rounding.
--- NOTE | 2016-08-23 07:40 | PCM.DIMED ---
Discharge Instructions Date of Service Aug 23, 2016 Dates of Hospitalization Aug 20, 2016 at 14:34 Discharge Diagnosis Discharge Diagnosis Facial Cellulitis Medication Instructions Additional med instructions Use Hibiclens soap in the shower for at least same two weeks If this recurs return to an urgent care or ED as soon as possible and test that Dr Tovar would like to have done is: slides made for DFA for herpes simplex or fluid collected for PCR for herpes simplex Diet Discharge Diet: No restrictions Activity Discharge Activity: No restrictions Call your provider Call your provider for: Other (worsening symptoms or later recurrence) Patient Instructions Follow-up with PCP in: 2 weeks Suni Crouch MD Aug 23, 2016 07:40
[2016-08-23] MEDS ORDERED: CLIN-78 PO (07:51)
[2016-08-23] MEDS ORDERED: MUPI1OIN5 NASAL (07:51)
[2016-08-23] MEDS ORDERED: RIFA300C4 PO (07:51)
[2016-08-23] MEDS ORDERED: RIFA150C2 PO (07:51)
--- NOTE | 2016-08-23 07:57 | PCM.DC.MED ---
Discharge Summary Date of Service Aug 23, 2016 Dates of Hospitalization Date of Hospital Admission Aug 20, 2016 at 14:34 Date of Discharge: Aug 23, 2016 Providers: Admitting Physician: Eric Peace MD Primary Care Physician: Cristian Attending Physician: Milad Alarcon MD Diagnosis at Time of Discharge Diagnosis at Time of Discharge Facial Cellulitis Consultations Dr. Tovar, infectious disease Procedures XRay, CTs & MRIs PROCEDURE: CT FACE WITH CONTRAST ([id number]) INDICATIONS: severe facial cellulits r/o abscess TECHNIQUE: After the administration of intravenous contrast, 3.0 mm axial sections acquired from the mid-neck to the frontal sinuses, with coronal reformatting. For radiation dose reduction, the following was used: automated exposure control. COMPARISON: None. FINDINGS: Image quality: Excellent. Soft tissues: There is marked swelling overlying the right preorbital, zygomatic and maxillary soft tissues. There is no discrete fluid collection to suggest abscess. No other suspicious soft tissue lesions. There are multiple subcentimeter shotty lymph nodes. Vascular: Visualized vascular structures appear patent throughout. Bony vascular foramina and canals appear normal. Bones: Facial bones appear intact, without fractures, erosions, or destruction. Visualized portions of the skull base and auditory canals also appear normal. Sinuses: Paranasal sinuses are aerated without fluid levels, mucosal thickening , or mucoceles. Mastoid air cells are aerated. IMPRESSION: 1. Marked right facial soft tissue swelling without underlying abscess amenable to drainage. These findings are most consistent with cellulitis. Dictated by: Lottie Gao M.D. on 08/20/2016 at 15:19 Approved by: Lottie Gao M.D. on 08/20/2016 at 15:27 Brief History 21 yo F with h/o anxiety/depression, recurrent facial cellulitis of left eye presenting for severe swelling of left eye and overlying rash. Started yesterday. She says that she woke up this AM and here eye was swollen almost closed. She has had issues like this in the past and has been seen by [employer]. She has been tested for Lupus and that test was negative. Has responsed to antibiotics in the past. Pt denies fever,chills. Was painful but that has improved with the pain meds. Does not some clear discharge when wiping her eye but no purulent discharge. She says she has been tested for MRSA in the past and that has been negative. Has had 5 episodes over last year but this is most severe. Denies any sick contacts. No bug bites. No outdoor activity. No new products applied to face. Hospital Course #Facial Cellulitis- w/ severe Orbital Swelling- previous episodes of MSSA, some clear drainage appears non-purulent, swelling much improved at time of discharge -Patient initially on vancomycin as well as meropenem as per infectious disease. Difficult time getting adequate troughs for the vancomycin so switched to daptomycin per infectious disease. - initially also treated with Decadron - Blood Cultures are NGSF - CT Face- c/w cellulitis w/ no abscess. - at time of discharge Dr. Tovar's recommendations are: 1. At discharge, I would send the patient out with clindamycin 300 mg p.o. q.i.d. for two weeks as well as rifampin 450 b.i.d. for two weeks. In addition, I would send the patient with mupirocin 2% ointment to apply to the anterior nares twice a day for two weeks as well as to apply directly to the forehead lesion twice a day and whenever this starts to recur, should it recur in the future. In addition to these measures, I instructed the patient and her mother to use Hibiclens soap in the shower for at least the same two weeks she is taking clindamycin and rifampin. 2. Should the patient start to develop this again, I asked her to return to an urgent care or ED as soon as possible so that slides can be made for DFA for herpes simplex or perhaps fluid collected for PCR for herpes simplex, as I wonder if this could constitute a recurrent localized herpes simplex eruption. #Depression and Anxiety-usual SSRI and PRN ativan, anxiety is much improved today #Tobacco Use- Nicotine patches. #Pain- Morphine 1mg IV q3h prn. #Left ankle swelling - has improved, x-ray unremarkable FEN- Diet- regular GI ppx- none required. VTE Prophylaxis- Ambulatory, SCD. Code- Full Exam Vital Signs (Last) Date Time Temp Pulse Resp B/P Pulse Ox O2 Delivery O2 Flow Rate FiO2 08/23/16 04:52 36.6 54 16 116/71 100 Room Air Exam Minimal left periorbital swelling Test 08/20/16 13:30 08/20/16 13:52 08/21/16 05:55 08/22/16 02:00 Total Bilirubin 0.9mg/dL (0.0-1.2) Aspartate Amino Transf (AST/SGOT) 29U/L (0-50) Alanine Aminotransferase (ALT/SGPT) 20U/L (0-32) Alkaline Phosphatase 81U/L (25-150) Total Protein 7.4g/dL (6.4-8.4) Albumin 4.5g/dL (3.4-5.0) Procalcitonin 0.02ng/mL (0.00-0.08) Lactic Acid Level 0.9mmol/L (0.4-2.0) Serum Immunoglobulin A 182mg/dL (87-352) Serum Immunoglobulin G 814mg/dL (700-1600) C-Reactive Protein 0.3mg/dL (0.0-0.5) Immunoglobulin M 89mg/dL (26-217) Anti-Nuclear Antibody Screen Negative (Negative) Vancomycin Level Trough 4.3mcg/mL Test 08/22/16 10:20 08/23/16 05:21 HIV (1&2) Ag and Ab, 4th Generation Non reactive (Non Reactive) White Blood Count 8.9th/mm3 (3.8-10.1) Red Blood Count 4.45mil/mm3 (3.90-5.20) Hemoglobin 13.5g/dL (12.0-15.6) Hematocrit 41.5% (35.0-46.0) Mean Corpuscular Volume 93.3fL (81-100) Mean Corpuscular Hemoglobin 30.3pg (27.0-35.0) Mean Corpuscular Hemoglobin Concent 32.5% (32.0-37.0) Red Cell Distribution Width 13.0% (12.3-15.4) Platelet Count 247bil/L (150-400) Neutrophils (%) (Auto) 42.8% (40-74) Lymphocytes (%) (Auto) 46.8% (14-46) Monocytes (%) (Auto) 8.1% (4-12) Eosinophils (%) (Auto) 1.6% (0-5) Basophils (%) (Auto) 0.6% (0-3) Sodium Level 140mEq/L (134-144) Potassium Level 4.3mEq/L (3.5-5.2) Chloride Level 102mEq/L (97-108) Carbon Dioxide Level 23mmol/L (18-29) Blood Urea Nitrogen 14mg/dL (6-20) Creatinine 0.59mg/dL (0.57-1.00) Estimat Glomerular Filtration Rate 181mL/min (>59) Glucose Level 89mg/dL (60-99) Calcium Level 9.1mg/dL (8.5-10.1) Microbiology Results Laboratory Tests Test 08/20/16 13:30 08/20/16 13:52 White Blood Count 8.1th/mm3 (3.8-10.1) Red Blood Count 4.85mil/mm3 (3.90-5.20) Hemoglobin 14.6g/dL (12.0-15.6) Hematocrit 44.6% (35.0-46.0) Mean Corpuscular Volume 92.0fL (81-100) Mean Corpuscular Hemoglobin 30.1pg (27.0-35.0) Mean Corpuscular Hemoglobin Concent 32.7% (32.0-37.0) Red Cell Distribution Width 13.2% (12.3-15.4) Platelet Count 275bil/L (150-400) Neutrophils (%) (Auto) 63.1% (40-74) Lymphocytes (%) (Auto) 21.1% (14-46) Monocytes (%) (Auto) 11.4% (4-12) Eosinophils (%) (Auto) 3.8% (0-5) Basophils (%) (Auto) 0.5% (0-3) Sodium Level 138mEq/L (134-144) Potassium Level 4.0mEq/L (3.5-5.2) Chloride Level 98mEq/L (97-108) Carbon Dioxide Level 23mmol/L (18-29) Blood Urea Nitrogen 14mg/dL (6-20) Creatinine 0.71mg/dL (0.57-1.00) Estimat Glomerular Filtration Rate 146mL/min (>59) Glucose Level 80mg/dL (60-99) Calcium Level 9.6mg/dL (8.5-10.1) Total Bilirubin 0.9mg/dL (0.0-1.2) Aspartate Amino Transf (AST/SGOT) 29U/L (0-50) Alanine Aminotransferase (ALT/SGPT) 20U/L (0-32) Alkaline Phosphatase 81U/L (25-150) Total Protein 7.4g/dL (6.4-8.4) Albumin 4.5g/dL (3.4-5.0) Procalcitonin 0.02ng/mL (0.00-0.08) Lactic Acid Level 0.9mmol/L (0.4-2.0) Microbiology 08/20/16 Blood Culture, Received Pending 08/20/16 Gram Stain - Final, Resulted 08/20/16 Culture & Sensitivity, Resulted Pending Discharge Medications Discharge Medications Citalopram (Citalopram) 10 Mg Tablet 10 MG PO DAILY (Reported) Clindamycin (Clindamycin) 300 Mg Capsule 300 MG PO QID Prescribed by: MILAD ALARCON MD Mupirocin Nasal Oint (Bactroban Nasal Oint) 1 Gm Oint...g. 1 APPLIC NASAL BID for 2 weeks Prescribed by: MILAD ALARCON MD Rifampin (Rifampin) 300 Mg Capsule 300 MG PO BID with 150 mg capsule for a total of 450 mg twice a day Prescribed by: MILAD ALARCON MD Rifampin (Rifampin) 150 Mg Capsule 150 MG PO BID with 300 mg capsule for a total of 450 mg twice a day Prescribed by: MILAD ALARCON MD Additional med instructions Use Hibiclens soap in the shower for at least same two weeks If this recurs return to an urgent care or ED as soon as possible and test that Dr Tovar would like to have done is: slides made for DFA for herpes simplex or fluid collected for PCR for herpes simplex Followup Plan Discharge Diet: No restrictions Discharge Activity: No restrictions Follow-up with PCP in: 2 weeks Milad Alarcon MD Aug 23, 2016 07:57
--- NOTE | 2016-08-23 08:59 | NUR ---
Social Work: Discharge Data: Pt is on day 2 of hospitalization. EMR reviewed. D/C orders are in. No d/c planning needs at this time. Pt will d/c on PO ABX per MD d/c paperwork. 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 Assessment: Pt who is independent at baseline. Plan: Pt will d/c home via POV today. No d/c planning needs at this time. Pt will d/c on PO ABX per MD d/c paperwork. 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 DIEGO Avila
[2016-08-23] MEDS: Ertapenem Inj 1,000 MG in 0.9% Sodium Chloride 50 ML IV SCH (09:02)
[2016-08-23 09:18] VITALS: BP 133/77; PULSE 61; RESP 16; O2SAT 99
[2016-08-23] MEDS ORDERED: CITA10TA9 PO (11:22)
--- NOTE | 2016-08-23 11:34 | NUR ---
DISCHARGE Pt discharged home at 1125, req to [facility] off unit accompanied by her mother and this RN. Vital signs stable, A&Ox4, denies any pain and in no apparent distress. IV dc'd intact and all belongings returned. All instructions for diet, activity, medications, prescriptions and follow up reviewed with pt and mother, who report understanding.
== END 2016-08-23 11:25 | disposition home or self-care (01) | DRG 603 ==
LOC: SED 12:59 → MOC 14:34 → OBSVTOIN 14:34 → MPC 15:50
PROVIDERS: ADMIT Internal Medicine; ATTEND Internal Medicine
DX: L03.211 Cellulitis of face (principal); F41.8 Other specified anxiety disorders; F17.210 Nicotine dependence, cigarettes, uncomplicated; M25.472 Effusion, left ankle; L03.213 Periorbital cellulitis